=== PATIENT | female | born 1930 | race Caucasian/White ===

== ENCOUNTER 2016-05-12 22:06 | Emergency (ER) | payer OTHER, BC ==
[~2016-05-12] VITALS: Ht 160 cm; Wt 48.9 kg
[~2016-05-12 22:06] MED LIST: ACIDOPHILUS1 EAC4 PO; CALCIUM CARBON300 MG PO; COQ1050 MG PO; DAILY VALUE1 EACH PO; FIBER THERAPY0.52 GM PO; FISH OIL 1,2001 EAC5 PO; FOLIC ACID1 MG PO; MAGNESIUM250 M1 PO; NOHOMEMEDS; NYSTATIN100000 UN1 PO; OMEPRAZOLE20 MG PO; ORAZINC110 MG PO; TUMERIC PO; ZITHROMAX Z-PA250 MG PO
[2016-05-13 01:03] VITALS: BP 187/93
== END 2016-05-13 01:08 | disposition home or self-care (01) ==
LOC: EXP 22:06 → EME 22:06 → EXP 05-13 01:08
PROC: 0HQ0XZZ Repair Scalp Skin, External Approach (ICD-10-PCS; principal; 2016-05-13)
DX: S01.01XA Laceration without foreign body of scalp, initial encounter (principal); S50.311A Abrasion of right elbow, initial encounter; S51.811A Laceration without foreign body of right forearm, initial encounter; W19.XXXA Unspecified fall, initial encounter; Z87.891 Personal history of nicotine dependence
CPT/HCPCS: 70450; 99281; 99284